=== PATIENT | female | born 1985 | race Two or more races ===

== ENCOUNTER → 2023-08-01 | Outpatient (CLI) | payer OTHER ==
[~2023-08-01] MED LIST: BREO ELLIPTA 21 EACH IH; COZAAR50 MG PO; IRON236 MG PO; NASAL ALLERGY16.9 ML NASAL; PEPCID40 MG PO; PROTONIX40 MG PO; SINGULAIR10 MG PO; SPIRIVA RESPIMAT4 G1 IH; ZYRTEC10 M3 PO
== END | disposition home or self-care (01) ==
LOC: SONOGRAMA 10:38
PROVIDERS: ATTEND Pathology Anatomic Pathology & Clinical Pathology
DX: D34 Benign neoplasm of thyroid gland (principal); E04.9 Nontoxic goiter, unspecified

== ENCOUNTER 2023-08-05 05:10 | Inpatient (IN) | payer OTHER ==
[2023-08-02 09:47] LABS: URINE APPEARANCE Cloudy; URINE BILIRRUBIN Negative (NEGATIVE); URINE BLOOD Large; URINE COLOR Yellow; URINE GLUCOSE Negative (NEGATIVE); URINE LEUKOCYTE Trace; URINE NITRATE Negative; URINE PROTEIN 30 (NEGATIVE); URINE UROBILINOGEN 0.2 E.U./dl
[2023-08-02 09:52] LABS: URINE RBC 2359.3 uL (0.0-20.8); URINE WBC 15.4 uL (0.0-23.2)
[2023-08-02 09:56] LABS: HEMOGLOBIN 10.6 g/dL (12.0-15.00); MEAN CORPUSCULAR HEMOGLOBIN 19.7 pg (27.00-32.0); PLATELET COUNT 201 K/uL (150-450); RED BLOOD COUNT 5.37 M/uL (4.00-6.00); RED CELL DISTRIBUTION WIDTH 19.1 % (11.5-14.5)
[2023-08-02 09:57] LABS: MEAN CELL VOLUME 61.5 fL (80.00-100.00)
[2023-08-02 10:29] LABS: INR 1.02; PARTIAL THROMBOPLASTIN TIME 29.6 SECONDS (22.0-34.0); PROTHROMBIN TIME 10.7 SECONDS (9.0-11.5)
[2023-08-02 10:32] LABS: ALBUMIN 3.3 gm/dL (3.4-5.0); BILIRUBIN TOTAL 0.38 mg/dL (0.3-1.2); CALCIUM 9.2 mg/dL (8.5-10.1); CREATININE SERUM 0.84 mg/dL (0.55-1.02); GFR 76.29; GLOBULINA 4.3 G/DL (2.4-3.5); POTASSIUM 4.33 mEq/L (3.5-5.1); TOTAL PROTEIN 7.6 gm/dL (6.4-8.2)
[~2023-08-05] VITALS: Ht 20.3 cm; Wt 5.0 kg
== END 2023-08-06 12:06 | disposition home or self-care (01) | DRG 627 ==
LOC: CIR.AMB 05:10 → SURH 18:34
PROVIDERS: ADMIT Surgery; ATTEND Surgery
PROC: 0GTH0ZZ Resection of Right Thyroid Gland Lobe, Open Approach (ICD-10-PCS; principal; 2023-08-05 13:30)
DX: D34 Benign neoplasm of thyroid gland (principal); Z20.822 Contact with and (suspected) exposure to COVID-19